=== PATIENT | female | born 1965 | race Caucasian/White ===

== ENCOUNTER 2021-02-17 15:40 | Inpatient (IN) | payer OTHER ==
[~2021-02-17] VITALS: Ht 162.6 cm; Wt 122.4 kg
[2021-02-17 16:34] LABS: BASOPHILS ABSOLUTE AUTO 0.04 K/mm3 (0.00-0.23); BASOPHILS PERCENT AUTO 0 % (0-2); EOSINOPHILS ABSOLUTE AUTO 0.08 K/mm3 (0.00-0.68); EOSINOPHILS PERCENT AUTO 1 % (0-6); Hematocrit 48.1 % (33.0-51.0); Hemoglobin 16.1 g/dL (11.5-16.0); IMMATURE GRAN ABSOLUTE AUTO 0.04 K/mm3 (0.00-0.10); IMMATURE GRAN PERCENT AUTO 0 % (0-1); LYMPHOCYTES PERCENT AUTO 16 % (21-46); MONOCYTES ABSOLUTE AUTO 0.84 K/mm3 (0.16-1.47); MONOCYTES PERCENT AUTO 7 % (4-13); Mean Corpuscular HGB 29.7 pg (26.0-34.0); Mean Corpuscular HGB Conc 33.5 g/dL (31.5-36.5); Mean Corpuscular Volume 89 fL (80-100); Mean Platelet Volume 9.2 fL (9.1-12.4); NEUTROPHILS ABSOLUTE AUTO 9.84 K/mm3 (1.96-9.15); NEUTROPHILS PERCENT AUTO 76 % (41-73); Platelet Count 331 K/mm3 (150-400); RDW Coefficient Variation 13.2 % (11.7-14.2); RDW Standard Deviation 43.1 fL (35.1-46.3); Red Blood Cell Count 5.42 M/mm3 (3.80-5.20); White Blood Cell Count 12.94 K/mm3 (4.00-11.30)
[2021-02-17] MEDS ORDERED: OMEP20ER PO (17:05)
[2021-02-17] MEDS ORDERED: CITALOPRAM HBR10 MG PO (17:05)
[2021-02-17 17:14] LABS: Alanine Aminotransfer (ALT/SGP 31 U/L (12-78); Albumin, Blood 3.5 g/dL (3.4-5.0); Albumin/Globulin Ratio 0.9 (0.8-1.8); Alk Phos 76 U/L (50-136); Anion Gap 5 mmol/L (6-16); Aspartate Aminotrans (AST/SGOT 53 U/L (12-37); Bilirubin, Total 0.2 mg/dL (0.1-1.0); Blood Urea Nitrogen 18 mg/dL (8-24); Bun/Creatinine Ratio 21.4 (12.0-20.0); CO2, Blood 25 mmol/L (21-32); Calcium, Blood 9.5 mg/dL (8.5-10.1); Chloride, Blood 107 mmol/L (98-108); Creatinine, Blood 0.84 mg/dL (0.40-1.00); Glomerular Filtration Rate >60 (60-); Glucose, Blood 91 mg/dL (70-99); Potassium, Blood 4.4 mmol/L (3.5-5.5); Sodium, Blood 137 mmol/L (136-145); Total Protein, Blood 7.5 g/dL (6.4-8.2)
[2021-02-17 19:03] LABS: Prothrombin Time Results 10.5 Sec (9.7-11.5)
[2021-02-17 19:59] LABS: Influenza A, PCR NEGATIVE (NEGATIVE); Influenza B, PCR NEGATIVE (NEGATIVE); Resp Syncytial Virus, PCR NEGATIVE (NEGATIVE); SARS-Cov-2 (COVID-19) PCR, MMC NEGATIVE (NEGATIVE)
--- NOTE | 2021-02-17 22:46 | NUR ---
PT ARRIVED AT APPROX 2100. PT IS ALERT AND ORIENTED X4. PT DENIES HAVING CHEST PAIN OR PRESSURE. DENIES FEELING SOB OR CALF TENDERNESS. PT VITALS ARE STABLE AND IS ON ROOM AIR WITH SATS ABOVE 92%. PT HAS BEEN ORIENTED TO ROOM AND EDUCATED ON PROCEDURE AND BEING NPO AT MIDNIGHT. CALL LIGHT IS WITHIN REACH. WILL CONTINUE TO MONITOR.
[2021-02-18 03:24] LABS: BASOPHILS ABSOLUTE AUTO 0.06 K/mm3 (0.00-0.23); BASOPHILS PERCENT AUTO 1 % (0-2); EOSINOPHILS ABSOLUTE AUTO 0.22 K/mm3 (0.00-0.68); EOSINOPHILS PERCENT AUTO 2 % (0-6); Hematocrit 42.4 % (33.0-51.0); Hemoglobin 14.4 g/dL (11.5-16.0); IMMATURE GRAN ABSOLUTE AUTO 0.05 K/mm3 (0.00-0.10); IMMATURE GRAN PERCENT AUTO 0 % (0-1); LYMPHOCYTES ABSOLUTE AUTO 3.75 K/mm3 (0.84-5.20); LYMPHOCYTES PERCENT AUTO 31 % (21-46); MONOCYTES ABSOLUTE AUTO 1.07 K/mm3 (0.16-1.47); MONOCYTES PERCENT AUTO 9 % (4-13); Mean Corpuscular HGB 29.5 pg (26.0-34.0); Mean Corpuscular Volume 87 fL (80-100); Mean Platelet Volume 9.4 fL (9.1-12.4); NEUTROPHILS ABSOLUTE AUTO 6.93 K/mm3 (1.96-9.15); NEUTROPHILS PERCENT AUTO 57 % (41-73); Platelet Count 275 K/mm3 (150-400); RDW Coefficient Variation 13.4 % (11.7-14.2); RDW Standard Deviation 42.6 fL (35.1-46.3); Red Blood Cell Count 4.88 M/mm3 (3.80-5.20); White Blood Cell Count 12.08 K/mm3 (4.00-11.30)
[2021-02-18 04:31] LABS: Anion Gap 8 mmol/L (6-16); Blood Urea Nitrogen 19 mg/dL (8-24); Bun/Creatinine Ratio 22.3 (12.0-20.0); CO2, Blood 26 mmol/L (21-32); Calcium, Blood 8.9 mg/dL (8.5-10.1); Chloride, Blood 108 mmol/L (98-108); Creatinine, Blood 0.85 mg/dL (0.40-1.00); Glomerular Filtration Rate >60 (60-); Glucose, Blood 95 mg/dL (70-99); Potassium, Blood 3.8 mmol/L (3.5-5.5); Sodium, Blood 142 mmol/L (136-145)
--- NOTE | 2021-02-18 06:16 | NUR ---
SHIFT SUMMARY PT IS ALERT AND ORIENTED X4. PT DENIES CHEST PAIN/PRESSURE OR SOB. VITALS ARE STABLE AND IS ON ROOM AIR WITH SATS ABOVE 92%. PT IS ON HEPARIN GTT. PT IS A SBA TO THE BATHROOM. PT HAS CARDIOLOGY CONSULT AND IS NPO SINCE MIDNIGHT. PALLIATIVE CARE CONSULT WAS CALLED IN THROUGH [facility]. TROP WAS 10.6 AND WAS REPORTED TO CHARGE NURSE. CALL LIGHT IS WITHIN REACH.
--- NOTE | 2021-02-18 11:49 | NUR ---
PATIENT RETURNED FROM [facility]OUNDRY SUPERVISOR AT 1040. RIGHT WRIST ANGIO AND STENT PLACEMENT IN MID-RCA. SHE IS IN GOOD SPIRITS WITH MILD HEADACHE - FOUNDRY SUPERVISOR NURSE RECOMMENDED COFFEE WHICH THE PATIENT HAD DELIVERED. ANGIO SITE IN RIGHT WRIST SOFT, ABSENT OF HEMATOMA. CALLED PHARMACY TO D/C HEPARIN PER DR. LOWE. VS MONITORING PER PROTOCOL. PATIENT A&O X4, RESTING IN ROOM AND MAKING PHONE CALLS TO UPDATE FRIENDS AND FAMILY. PATIENT EDUCATED ON KEEPING WRIST FLAT AND ADVISED OF VISITOR POLICY AND TIMES.
--- NOTE | 2021-02-18 16:04 | NUR ---
TR BAND FULLY DEFLATED. NO BLEEDING OR HEMATOMA. LEAVING IN PLACE FOR ONE HOUR PER ORDERS. PATIENT TOLERATING WELL AND LOOKING FORWARD TO HAVING BAND REMOVED.
--- NOTE | 2021-02-18 17:38 | NUR ---
SHIFT SUMMARY: PATIENT TRANSFERRED TO INBOUND SALES CONSULTANT AT 0920 AND RETURNED AT 1035. SHE HAD A RIGHT RADIAL ANGIOGRAM AND MID-RIGHT RCA STENT PLACED. VS PER PROTOCOL. DEFLATION OF TR BAND BEGAN AT 1440 AND COMPLETED AROUND 1615. BAND WAS LEFT IN PLACE UNTIL 1700 THEN COVERED WITH TEGADERM. SITE WNL, NO HEMATOMA. THERE WAS SLIGHT BRUISING AROUND D/C'D FOREARM IV SITE, BUT HAS NOT EXPANDED. VS HAVE BEEN STABLE, PATIENT DENIES SOB AND CHEST PAIN. MEDICATED HEADACHER PER EMAR. NS IS RUNNING AT 75 mL/HR PER EMAR. PATIENT DOES NOT ENJOY THE CARDIAC DIET; MOTHER BROUGHT IN EGG SALAD SANDWICH. AT 1730 THE EMOTIONAL WEIGHT OF THE LAST 24 HOURS TOOK ITS TOLL ON THE PATIENT AND SHE BEGAN TO CRY. THIS RN AND PCT PROVIDED THERAPEUTIC COMMUNICATION AND SHE IS IN BETTER SPIRITS NOW. PATIENT IS EXHAUSTED FROM THE DAY'S EVENTS AND IS RESTING. PATIENT EDUCATED TO NOT USE RIGHT ARM. CALL LIGHT WITHIN REACH ON LEFT SIDE. WILL REPORT TO NOC RN.
--- NOTE | 2021-02-18 17:57 | NUR ---
Pt is a 55 year old female with a history of both breast and anal cancer, both in remission. She presented to the ED with chest pain, which ultimately proved to be NSTEMI. She had a coronary angiography yesterday, and is currently resting comfortably in her room. She states she is feeling antsy without nicotine for the past day, but declines a patch. She states she can quit without it, as the patch has made her extremely nauseated in the past. Pt is a , and has been proactive and her own advocate for healthcare in the past. [facility] and make needed lifestyle [facility]. I will remain available.
[2021-02-19 04:19] LABS: Hematocrit 37.7 % (33.0-51.0); Hemoglobin 12.8 g/dL (11.5-16.0); Mean Corpuscular Volume 88 fL (80-100); Mean Platelet Volume 9.9 fL (9.1-12.4); Platelet Count 255 K/mm3 (150-400); RDW Coefficient Variation 13.5 % (11.7-14.2); RDW Standard Deviation 43.9 fL (35.1-46.3); Red Blood Cell Count 4.27 M/mm3 (3.80-5.20); White Blood Cell Count 10.04 K/mm3 (4.00-11.30)
[2021-02-19 04:57] LABS: Anion Gap 6 mmol/L (6-16); Blood Urea Nitrogen 18 mg/dL (8-24); Bun/Creatinine Ratio 23.4 (12.0-20.0); CO2, Blood 23 mmol/L (21-32); Calcium, Blood 8.3 mg/dL (8.5-10.1); Chloride, Blood 111 mmol/L (98-108); Creatinine, Blood 0.77 mg/dL (0.40-1.00); Glomerular Filtration Rate >60 (60-); Glucose, Blood 91 mg/dL (70-99); Potassium, Blood 3.7 mmol/L (3.5-5.5); Sodium, Blood 140 mmol/L (136-145)
--- NOTE | 2021-02-19 05:55 | NUR ---
SHIFT SUMMARY PT IS ALERT AND ORIENTED X4. THERE HAVE BEEN NO ACUTE CHANGES. VITALS ARE STABLE AND IS ON ROOM AIR WITH SATS ABOVE 92%. RADIAL SITE IS WNL AND HAS TEGADERM ON SITE. PT DENIES CHEST PAIN OR SOB. PT IS A SBA TO BATHROOM.CALL LIGHT IS WITHIN REACH.
--- NOTE | 2021-02-19 11:51 | NUR ---
Echocardiogram completed.
[2021-02-19] MEDS ORDERED: ASPI81CH PO (12:16)
[2021-02-19] MEDS ORDERED: Isosorbide Mono30 MG PO (12:17)
[2021-02-19] MEDS ORDERED: ATOR40TA PO (12:17)
[2021-02-19] MEDS ORDERED: CLOP75 PO (12:17)
[2021-02-19] MEDS ORDERED: METO25 PO (12:17)
--- NOTE | 2021-02-19 14:03 | NUR ---
DISCHARGE SUMMARY: PATIENT DISCHARGED AT 1330. BEFORE DISCHARGE, PATIENT WAS EDUCATED ON FOLLOW-UP PLAN AND NEW MEDICATIONS. PATIENT WAS PROVIDED WITH STENT WALLET CARD AND MEDICATIONS HANDOUTS. IV D/C'D WNL. PATIENT THANKED ALL STAFF FOR THEIR EXCELLENT CARE AND TRIED TO WALK OUTBY HERSELF. AIDES SAW HER AND BROUGHT A WHEELCHAIR. FAMILY PICKED UP PATIENT AT EMERGENCY EXIT.
== END 2021-02-19 13:20 | disposition home or self-care (01) | DRG 247 ==
LOC: ER 15:40 → PCU 19:48
PROVIDERS: Emergency Medicine; Family Medicine; Internal Medicine Interventional Cardiology; Physician Assistant; ADMIT Internal Medicine
PROC: 4A023N7 Measurement of Cardiac Sampling and Pressure, Left Heart, Percutaneous Approach (ICD-10-PCS; principal; 2021-02-18)
PROC: 027034Z Dilation of Coronary Artery, One Artery with Drug-eluting Intraluminal Device, Percutaneous Approach (ICD-10-PCS; 2021-02-18)
PROC: B2111ZZ Fluoroscopy of Multiple Coronary Arteries using Low Osmolar Contrast (ICD-10-PCS; 2021-02-18)
PROC: B240ZZ3 Ultrasonography of Single Coronary Artery, Intravascular (ICD-10-PCS; 2021-02-18)
DX: I21.4 Non-ST elevation (NSTEMI) myocardial infarction (principal); Z68.42 Body mass index [BMI] 45.0-49.9, adult; Z20.822 Contact with and (suspected) exposure to COVID-19; I20.0 Unstable angina; F17.210 Nicotine dependence, cigarettes, uncomplicated; E78.5 Hyperlipidemia, unspecified; R74.8 Abnormal levels of other serum enzymes; K21.9 Gastro-esophageal reflux disease without esophagitis; F32.89 Other specified depressive episodes; E66.9 Obesity, unspecified; Z79.899 Other long term (current) drug therapy; Z85.3 Personal history of malignant neoplasm of breast; Z85.048 Personal history of other malignant neoplasm of rectum, rectosigmoid junction, and anus; Z82.49 Family history of ischemic heart disease and other diseases of the circulatory system
CPT/HCPCS: 0241U; 36415; 71046; 71275; 76937; 80048; 80053; 83036; 83690; 84484; 85025; 85027; 85347; 85520; 85610; 85730; 92978; 93005; 93010; 93306; 93454; 99152; 99153; 99285-25; A9270; C1725; C1753; C1769; C1874; C1887; C1894; C9600; J0461; J1644; J2250; J3010; J3246; J7030; J7040; J7050; Q9967

== ENCOUNTER 2021-03-04 17:07 | Emergency (ER) | payer OTHER ==
[~2021-03-04] VITALS: Ht 162.6 cm; Wt 119.6 kg
[~2021-03-04 17:07] MED LIST: ASPI81CH PO; ATOR40TA PO; CITALOPRAM HBR10 MG PO; CLOP75 PO; Isosorbide Mono30 MG PO; METO25 PO; OMEP20ER PO
[2021-03-04 17:34] LABS: BASOPHILS ABSOLUTE AUTO 0.04 K/mm3 (0.00-0.23); BASOPHILS PERCENT AUTO 0 % (0-2); EOSINOPHILS ABSOLUTE AUTO 0.21 K/mm3 (0.00-0.68); EOSINOPHILS PERCENT AUTO 2 % (0-6); Hematocrit 45.6 % (33.0-51.0); Hemoglobin 15.4 g/dL (11.5-16.0); IMMATURE GRAN ABSOLUTE AUTO 0.03 K/mm3 (0.00-0.10); IMMATURE GRAN PERCENT AUTO 0 % (0-1); LYMPHOCYTES ABSOLUTE AUTO 2.98 K/mm3 (0.84-5.20); LYMPHOCYTES PERCENT AUTO 30 % (21-46); MONOCYTES ABSOLUTE AUTO 0.76 K/mm3 (0.16-1.47); MONOCYTES PERCENT AUTO 8 % (4-13); Mean Corpuscular HGB Conc 33.8 g/dL (31.5-36.5); Mean Corpuscular Volume 89 fL (80-100); Mean Platelet Volume 9.8 fL (9.1-12.4); NEUTROPHILS ABSOLUTE AUTO 5.93 K/mm3 (1.96-9.15); NEUTROPHILS PERCENT AUTO 60 % (41-73); Platelet Count 338 K/mm3 (150-400); RDW Coefficient Variation 13.2 % (11.7-14.2); RDW Standard Deviation 43.1 fL (35.1-46.3); Red Blood Cell Count 5.14 M/mm3 (3.80-5.20); White Blood Cell Count 9.95 K/mm3 (4.00-11.30)
[2021-03-04 17:48] LABS: Alanine Aminotransfer (ALT/SGP 29 U/L (12-78); Albumin, Blood 3.5 g/dL (3.4-5.0); Albumin/Globulin Ratio 0.9 (0.8-1.8); Alk Phos 76 U/L (50-136); Anion Gap 5 mmol/L (6-16); Aspartate Aminotrans (AST/SGOT 29 U/L (12-37); Bilirubin, Total 0.2 mg/dL (0.1-1.0); Blood Urea Nitrogen 16 mg/dL (8-24); Bun/Creatinine Ratio 19.7 (12.0-20.0); CO2, Blood 29 mmol/L (21-32); Calcium, Blood 9.5 mg/dL (8.5-10.1); Chloride, Blood 107 mmol/L (98-108); Creatinine, Blood 0.81 mg/dL (0.40-1.00); Globulin, Blood 3.7 g/dL (2.2-4.0); Glomerular Filtration Rate >60 (60-); Glucose, Blood 92 mg/dL (70-99); Potassium, Blood 4.3 mmol/L (3.5-5.5); Sodium, Blood 141 mmol/L (136-145); Total Protein, Blood 7.2 g/dL (6.4-8.2); Troponin I <0.015 ng/mL (0.000-0.040)
== END 2021-03-04 19:39 | disposition home or self-care (01) ==
LOC: ER 17:07
PROVIDERS: Physician Assistant
DX: R07.9 Chest pain, unspecified (principal); K21.9 Gastro-esophageal reflux disease without esophagitis; I25.2 Old myocardial infarction; F17.210 Nicotine dependence, cigarettes, uncomplicated; Z79.82 Long term (current) use of aspirin; Z79.899 Other long term (current) drug therapy
CPT/HCPCS: 36415; 71046; 80053; 84484; 85025; 93005; 93010; 99285-25

== ENCOUNTER 2022-10-15 15:15 | Emergency (ER) | payer OTHER ==
[~2022-10-15] VITALS: Ht 162.6 cm; Wt 119.8 kg
[2022-10-15 15:35] VITALS: BP 145/88
[2022-10-15 16:37] LABS: BASOPHILS ABSOLUTE AUTO 0.05 K/mm3 (0.00-0.23); BASOPHILS PERCENT AUTO 1 % (0-2); EOSINOPHILS ABSOLUTE AUTO 0.17 K/mm3 (0.00-0.68); EOSINOPHILS PERCENT AUTO 2 % (0-6); Hematocrit 45.1 % (33.0-51.0); Hemoglobin 15.2 g/dL (11.5-16.0); IMMATURE GRAN ABSOLUTE AUTO 0.03 K/mm3 (0.00-0.10); IMMATURE GRAN PERCENT AUTO 0 % (0-1); LYMPHOCYTES PERCENT AUTO 32 % (21-46); MONOCYTES ABSOLUTE AUTO 0.83 K/mm3 (0.16-1.47); MONOCYTES PERCENT AUTO 9 % (4-13); Mean Corpuscular HGB 29.6 pg (26.0-34.0); Mean Corpuscular HGB Conc 33.7 g/dL (31.5-36.5); Mean Corpuscular Volume 88 fL (80-100); Mean Platelet Volume 9.8 fL (9.1-12.4); NEUTROPHILS PERCENT AUTO 56 % (41-73); Platelet Count 289 K/mm3 (150-400); RDW Coefficient Variation 13.5 % (11.7-14.2); RDW Standard Deviation 43.8 fL (35.1-46.3); Red Blood Cell Count 5.14 M/mm3 (3.80-5.20); White Blood Cell Count 9.08 K/mm3 (4.00-11.30)
[2022-10-15 16:52] LABS: Albumin, Blood 3.7 g/dL (3.4-5.0); Bilirubin, Total 0.3 mg/dL (0.1-1.0); Bun/Creatinine Ratio 21.3 (12.0-20.0); Calcium, Blood 9.7 mg/dL (8.5-10.1); Creatinine, Blood 0.84 mg/dL (0.40-1.00); Globulin, Blood 3.7 g/dL (2.2-4.0); Potassium, Blood 4.2 mmol/L (3.5-5.5); Total Protein, Blood 7.4 g/dL (6.4-8.2)
== END 2022-10-15 18:10 | disposition left against medical advice (07) ==
LOC: ER 15:15
PROVIDERS: Student in an Organized Health Care Education/Training Program
DX: R42 Dizziness and giddiness (principal); R00.2 Palpitations; Z53.21 Procedure and treatment not carried out due to patient leaving prior to being seen by health care provider
CPT/HCPCS: 71046; 80053; 84484; 85025; 93005; 93010

== ENCOUNTER 2023-12-26 11:07 | Day surgery (SDC) | payer OTHER ==
[~2023-12-26] VITALS: Ht 162.6 cm; Wt 119.0 kg
[2023-12-26] MEDS ORDERED: Celexa20 MG PO (13:15)
[2023-12-26] MEDS ORDERED: HYDR1TAB94 PO (13:15)
[2023-12-26] MEDS ORDERED: PANT40 PO (13:16)
[2023-12-26] MEDS ORDERED: NS 1,000 ML IV ONE ×2 (13:24→13:27)
[2023-12-26] MEDS ORDERED: Heparin Sodium 1000 Units/ML 10ML MDV ONE (13:24)
[2023-12-26] MEDS ORDERED: CeFAZolin Sodium 1000 mg Vial ONE (13:26)
[2023-12-26] MEDS ORDERED: NS 100 ML IV ONE (13:27)
[2023-12-26] MEDS ORDERED: CeFAZolin Sodium 2,000 MG VIAL ONE (13:27)
[2023-12-26] MEDS ORDERED: FentaNYL Citrate 50 MCG/ML 2 ML Injection ONE (13:27)
[2023-12-26] MEDS ORDERED: Midazolam HCl 1MG / ML 2ML Vial ONE (13:27)
--- NOTE | 2023-12-26 16:00 | NUR ---
Pt back to recovery, up in recliner, alert and oriented. vss. pt. provided with snacks and refreshements to drink. ice pack placed to site. plans for xray in an hour.
[2023-12-26 16:07] VITALS: BP 133/105
[2023-12-26 16:15] VITALS: BP 149/91
[2023-12-26 16:30] VITALS: BP 124/85
[2023-12-26 16:45] VITALS: BP 108/81
--- NOTE | 2023-12-26 16:45 | NUR ---
Pt to xray
--- NOTE | 2023-12-26 17:26 | NUR ---
Dr laguna in to see pt. pt okay to go home. site remains stable mild amt of swelling to site, ice pack in place.
--- NOTE | 2023-12-26 17:34 | NUR ---
Discharge instructions reviewed in detail. Pt verbalized undertstanding. pt vss remain stable. iv removed, cathter intact. gauze dressing to site. pt able to get self dressed w/o difficulty. all belognings taken with pt to exit via wheelchair. pt mother to drive pt home. no new medications, follow up appointments discussed.
== END 2023-12-26 17:30 | disposition home or self-care (01) ==
LOC: MHTC 11:07
DX: I44.1 Atrioventricular block, second degree (principal); R00.1 Bradycardia, unspecified; I25.10 Atherosclerotic heart disease of native coronary artery without angina pectoris; E78.5 Hyperlipidemia, unspecified; K21.9 Gastro-esophageal reflux disease without esophagitis; F17.210 Nicotine dependence, cigarettes, uncomplicated; I21.4 Non-ST elevation (NSTEMI) myocardial infarction; Z79.82 Long term (current) use of aspirin; Z79.899 Other long term (current) drug therapy; Z88.8 Allergy status to other drugs, medicaments and biological substances
CPT/HCPCS: 33208; 71046; 99152; 99153; C1785; C1894; C1898; J0690; J1644; J2250; J3010; J7030; J7040; Q9967

== ENCOUNTER 2025-01-15 07:13 | Emergency (ER) | payer OTHER ==
[~2025-01-15] VITALS: Ht 162.6 cm; Wt 111.1 kg
[~2025-01-15 07:13] MED LIST changes: +Celexa20 MG PO; +HYDR1TAB94 PO; +PANT40 PO
[2025-01-15 07:43] VITALS: BP 130/81
[2025-01-15] MEDS ORDERED: PRED20 PO (08:32)
== END 2025-01-15 09:18 | disposition home or self-care (01) ==
LOC: ER 07:13
DX: T78.40XA Allergy, unspecified, initial encounter (principal); K21.9 Gastro-esophageal reflux disease without esophagitis; F17.200 Nicotine dependence, unspecified, uncomplicated; Z79.82 Long term (current) use of aspirin; Z79.899 Other long term (current) drug therapy; Z88.0 Allergy status to penicillin; Z88.8 Allergy status to other drugs, medicaments and biological substances
CPT/HCPCS: 99283; A9270; J7512